=== PATIENT | female | born 1990 | race Caucasian/White ===

== ENCOUNTER 2022-10-23 17:28 | Emergency (ER) | payer BC ==
[2022-10-23 18:57] LABS: #Basophils 0.1 10x3/uL (0.0-0.2); #Eosinphils 0.4 10x3/uL (0.0-0.5); #Monocytes 0.5 10x3/uL (0.0-1.1); #Neutrophils 7.4 10x3/uL (1.5-8.4); %Basophils 0.5 % (0.0-2.0); %Eosinophils 3.5 % (0.0-6.0); %Lymphocytes 19.5 % (18.0-47.0); %Neutrophils 69.8 % (40.0-75.0); Hemoglobin 11.9 g/dL (12.0-15.5); Mean Corpuscular HGB CONC 34.2 g/dL (32.0-36.0); Mean Corpuscular Hemoglobin 30.2 pg (27.0-33.0); Mean Corpuscular Volume 88.3 fl (81.6-98.3); Mean Platelet Volume 9.5 fl (7.4-10.4); Platelet Count 290 10x3/uL (150-450); Red Blood Cell (RBC) Count 3.94 10x6/uL (3.90-5.03); White Blood Cell (WBC) Count 10.6 10x3/uL (3.5-10.5)
[2022-10-23 19:09] LABS: ALT (SGPT) 15 U/L (8-55); AST (SGOT) 19 U/L (5-34); Albumin 3.6 g/dL (3.5-5.0); Alkaline Phosphatase 69 U/L (40-110); Anion Gap 11 mmol/L (10-20); BUN (Urea Nitrogen) 9 mg/dL (7.0-18.7); Bilirubin, Total 0.2 mg/dL (0.2-1.2); Calc. Creatinine Clearance 0 mL/min (70-130); Calcium 8.9 mg/dL (7.8-10.44); Carbon Dioxide 25 mmol/L (22-29); Chloride 105 mmol/L (98-107); Estimated GFR 123; Globulin 2.9 g/dL (2.4-3.5); Glucose 97 mg/dL (70-105); Potassium 3.4 mmol/L (3.5-5.1); Protein, Total 6.5 g/dL (6.0-8.3); Sodium 138 mmol/L (136-145)
[2022-10-23 19:41] LABS: Bilirubin Neg (Negative); Blood, Urine Negative (Negative); Clarity Clear (Clear); Glucose, Urine (Dipstick) Normal (Negative); Ketone, Urine Negative (Negative); Leukocyte Negative (Negative); Nitrite Negative (Negative); Protein, Urine (Dipstick) Negative (Neg-Trace); Urobilinogen Normal mg/dL (Less than 2)
[2022-10-23 20:32] LABS: Bacteria/HPF Rare-Few HPF (None Seen); CAUTI Indications for Culture Pelvic or flank pain; RBC/HPF None Seen HPF (0-3); Squamous Epithelial 0-3 HPF (0-3); Urine Culture Reflex No No; WBC/HPF None Seen HPF (0-3)
[2022-10-23 20:34] LABS: Fetal Membranes Rupture No Membranes Rupture (No Rupture)
== END 2022-10-23 21:21 | disposition home or self-care (01) ==
LOC: CSHERS 17:28
DX: Z71.1 Person with feared health complaint in whom no diagnosis is made (principal)
CPT/HCPCS: 36415; 76815; 80053; 81001; 84112; 85025

== ENCOUNTER 2023-03-07 11:13 | Inpatient (IN) | payer BC ==
[2023-03-07 11:35] VITALS: BMI 33.6
[2023-03-07] MEDS ORDERED: Ondansetron PF 4 MG/2 ML Vial IVP PRN ×2 (12:20→15:15)
[2023-03-07] MEDS ORDERED: Lidocaine 1% (PF) 30 ML VIAL SC PRN (12:20)
[2023-03-07] MEDS ORDERED: Promethazine HCl 25 MG/ML VIAL IM PRN (12:20)
[2023-03-07] MEDS ORDERED: hydrALAZINE 20 MG/ML VIAL SLOW IVP PRN ×2 (12:20→15:15)
[2023-03-07] MEDS ORDERED: Oxytocin 30 units/NS 500 ML 500 ML IV SCH (12:30)
[2023-03-07 13:14] LABS: Hematocrit 36.1 % (34.9-44.5); Hemoglobin 12.5 g/dL (12.0-15.5); Mean Corpuscular HGB CONC 34.6 g/dL (32.0-36.0); Mean Corpuscular Hemoglobin 30.3 pg (27.0-33.0); Mean Corpuscular Volume 87.4 fl (81.6-98.3); Mean Platelet Volume 10.8 fl (7.4-10.4); Platelet Count 260 10x3/uL (150-450); RBC Distribution Width 14.5 % (11.5-14.5); Red Blood Cell (RBC) Count 4.13 10x6/uL (3.90-5.03); White Blood Cell (WBC) Count 10.5 10x3/uL (3.5-10.5)
[2023-03-07 13:24] LABS: HBSAg Index 0.14 S/CO (0-0.99); Hep B Surf Ag - L&D Non-Reactive S/CO (NonReactive); Syphilis Antibody Nonreactive (Nonreactive); Syphilis Antibody Index 0.06 S/CO (<1.00 Non-Reactive)
[2023-03-07 13:52] LABS: HIV (1/2) Antibody/Antigen Non-Reactive (NonReactive); HIV 1/2 INDEX 0.06 S/CO (<1.00)
[2023-03-07] MEDS ORDERED: HYDROcodone/Acetaminophen 5/325 mg Tablet PO PRN (15:15)
[2023-03-07] MEDS ORDERED: Preparation H Ointment 28 GM TUBE PR PRN (15:15)
[2023-03-07] MEDS ORDERED: Lanolin Ointment 7 GM TUBE TOP PRN (15:15)
[2023-03-07] MEDS ORDERED: Misoprostol 200 MCG TAB VAG PRN (15:15)
[2023-03-07] MEDS ORDERED: Bisacodyl 10 MG SUPP PR PRN (15:15)
[2023-03-07] MEDS ORDERED: Milk Of Magnesia 30 ML UDCUP PO PRN (15:15)
[2023-03-07] MEDS ORDERED: Benzocaine-Menthol 82.5 ML CAN TOP PRN (15:15)
[2023-03-07] MEDS: Ibuprofen 800 MG TAB PO SCH (16:19)
[2023-03-07] MEDS: Docusate 100 MG CAP PO SCH (21:22)
[2023-03-07] MEDS: Ferrous Sulfate 325 MG TAB PO SCH (21:34)
[2023-03-07] MEDS ORDERED: Ibuprofen 800 MG TAB PO SCH (22:00)
[2023-03-08] MEDS: Ibuprofen 800 MG TAB PO SCH ×2 (00:54→08:18)
[2023-03-08] MEDS: Ferrous Sulfate 325 MG TAB PO SCH (07:20)
[2023-03-08] MEDS: Docusate 100 MG CAP PO SCH (08:18)
[2023-03-08 09:52] VITALS: TEMP 98.7
[2023-03-08 13:59] VITALS: BP 118/69
== END 2023-03-08 16:00 | disposition home or self-care (01) | DRG 807 ==
LOC: CSHLD/OP 11:13 → CSHLD 12:20 → CSHPED 21:00
PROVIDERS: ADMIT Family Medicine; ATTEND Family Medicine
PROC: 10E0XZZ Delivery of Products of Conception, External Approach (ICD-10-PCS; principal; 2023-03-07)
PROC: 3E033VJ Introduction of Other Hormone into Peripheral Vein, Percutaneous Approach (ICD-10-PCS; 2023-03-07)
PROC: 10907ZC Drainage of Amniotic Fluid, Therapeutic from Products of Conception, Via Natural or Artificial Opening (ICD-10-PCS; 2023-03-07)
DX: O80 Encounter for full-term uncomplicated delivery (principal); Z37.0 Single live birth; Z3A.38 38 weeks gestation of pregnancy
CPT/HCPCS: 36415; 85027; 86780; 86850; 86900; 86901; 87340; 87389; 99285